=== PATIENT | male | born 1970 | race Two or more races ===

== ENCOUNTER 2020-06-28 10:08 | Emergency (ER) | payer SELFPAY ==
[~2020-06-28] VITALS: Ht 172.7 cm; Wt 74.8 kg
[2020-06-28] MEDS ORDERED: MORPHINE SULFATE 4 MG/ML SYR/VIAL IV ONE (10:45)
[2020-06-28] MEDS ORDERED: ONDANSETRON HCL 4 MG/2 ML VIAL IV ONE (10:45)
[2020-06-28] MEDS ORDERED: SODIUM CHLORIDE 0.9% 1,000 ML IVB ONE (10:45)
[2020-06-28 11:22] LABS: Basophils # (auto) 0 10 ^3/uL (0-0.2); Basophils % (auto) 0.7 % (0.0-2.0); Eosinophils # (auto) 0.2 10 ^3/uL (0-0.8); Eosinophils % (auto) 3.2 % (0.0-7.0); Hematocrit 40.9 % (41.0-53.0); Hemoglobin 13.9 g/dL (13.5-17.5); Lymphocytes # (auto) 2.4 10 ^3/uL (0.4-5.4); Lymphocytes % (auto) 34.2 % (10.0-50.0); Mean Corpuscular Hemoglobin 28.2 pg (28.0-32.0); Mean Corpuscular Volume 82.8 fL (80.0-100.0); Monocytes # (auto) 0.5 10 ^3/uL (0-1.3); Monocytes % (auto) 7.7 % (0.0-12.0); Neutrophils # (auto) 3.8 10 ^3/uL (1.6-8.6); Neutrophils % (auto) 54.2 % (37.0-80.0); Nucleated Red Blood Cells % 0.2 %; Red Blood Cells 4.94 10^6/uL (4.5-5.90); Red Cell Distribution Width 14.9 % (11.8-14.3)
[2020-06-28 11:32] LABS: Albumin 3.5 g/dL (3.4-5.0); Calcium 8.8 mg/dL (8.5-10.1); Potassium 4.4 mmol/L (3.5-5.1)
[2020-06-28 11:37] LABS: BUN/Creatinine Ratio 18.7; Bilirubin, Total 0.4 mg/dL (0.2-1.0); Total Protein 7.6 g/dL (6.4-8.2)
[2020-06-28 12:05] LABS: INR 1.03 (0.9-1.15)
[2020-06-28] MEDS ORDERED: IOHEXOL 300 MG/ML 100ML BOTTLE IJ ONE (12:42)
[2020-06-28 12:45] VITALS: BP 124/76
== END 2020-06-28 13:44 | disposition home or self-care (01) ==
LOC: ER 10:08
DX: R10.32 Left lower quadrant pain (principal)
CPT/HCPCS: 36415; 74177; 80053; 83690; 85025; 85610; 85730; 86850; 86900; 86901; 96361; 96374; 96375; 99285; J2270; J2405; Q9967

== ENCOUNTER 2020-11-22 11:00 | Emergency (ER) | payer SELFPAY ==
[~2020-11-22] VITALS: Ht 177.8 cm; Wt 81.6 kg
[2020-11-22 12:18] VITALS: BP 138/74
== END 2020-11-22 12:57 | disposition home or self-care (01) ==
LOC: ER 11:00 → EDBD 11:00 → ER 12:33
DX: T40.601A Poisoning by unspecified narcotics, accidental (unintentional), initial encounter (principal); F17.210 Nicotine dependence, cigarettes, uncomplicated; F12.10 Cannabis abuse, uncomplicated; Y92.89 Other specified places as the place of occurrence of the external cause

== ENCOUNTER 2021-01-16 11:15 | Emergency (ER) | payer SELFPAY ==
[~2021-01-16] VITALS: Ht 170.2 cm; Wt 74.8 kg
[2021-01-16 11:18] VITALS: BP 122/71
[2021-01-16] MEDS ORDERED: cefTRIAXone SOD 1,000 MG VL IM ONE (13:30)
[2021-01-16] MEDS ORDERED: LIDOCAINE 1% HCL (LOCAL ANESTH.) INJ 20ML MDV IJ ONE (13:30)
== END 2021-01-16 13:37 | disposition left against medical advice (07) ==
LOC: ER 11:15
DX: L02.31 Cutaneous abscess of buttock (principal); F17.210 Nicotine dependence, cigarettes, uncomplicated; F12.10 Cannabis abuse, uncomplicated; Z53.29 Procedure and treatment not carried out because of patient's decision for other reasons
CPT/HCPCS: 96372; 99283; J0696; J2001

== ENCOUNTER 2021-01-28 14:03 | Emergency (ER) | payer SELFPAY ==
[~2021-01-28] VITALS: Ht 170.2 cm; Wt 74.8 kg
[2021-01-28 14:13] VITALS: BP 143/94
[2021-01-28] MEDS ORDERED: SODIUM CHLORIDE 0.9% 1,000 ML IV ONE (15:30)
[2021-01-28] MEDS ORDERED: PIPERACILLIN-TAZO 4.5GM 100 ML IV ONE (15:30)
[2021-01-28] MEDS ORDERED: ONDANSETRON HCL 4 MG/2 ML VIAL IV ONE (15:30)
[2021-01-28] MEDS ORDERED: VANCOMYCIN PER PHARMACY 0 MG IV SCH (15:45)
[2021-01-28] MEDS ORDERED: MORPHINE SULFATE 10 MG/ML INJ 1ML SDV IV ONE (15:45)
[2021-01-28 16:11] LABS: Basophils # (auto) 0 10 ^3/uL (0-0.2); Hemoglobin 11.3 g/dL (13.5-17.5); Monocytes # (auto) 0.5 10 ^3/uL (0-1.3)
[2021-01-28 16:13] LABS: Basophils % (auto) 0.5 % (0.0-2.0); Eosinophils # (auto) 0.3 10 ^3/uL (0-0.8); Eosinophils % (auto) 2.7 % (0.0-7.0); Hematocrit 34.4 % (41.0-53.0); Mean Corpuscular Hemoglobin 27.4 pg (28.0-32.0); Mean Corpuscular Hgb Conc. 32.9 g/dL (32.0-36.0); Mean Corpuscular Volume 83.1 fL (80.0-100.0); Monocytes % (auto) 4.3 % (0.0-12.0); Neutrophils # (auto) 6.8 10 ^3/uL (1.6-8.6); Neutrophils % (auto) 64.5 % (37.0-80.0); Red Blood Cells 4.14 10^6/uL (4.5-5.90); Red Cell Distribution Width 15.8 % (11.8-14.3); White Blood Cell 10.6 10^3/uL (4.4-10.8)
[2021-01-28 16:44] LABS: BUN/Creatinine Ratio 23.9; Calcium 9.3 mg/dL (8.5-10.1); Potassium 3.7 mmol/L (3.5-5.1)
[2021-01-28] MEDS ORDERED: VANCOMYCIN 1,500 MG in D5W 5% 250 ML IV ONE (17:00)
[2021-01-28] MEDS ORDERED: VANCOMYCIN 1,500 MG in D5W 5% 250 ML IV SCH (22:00)
[2021-01-29] MEDS ORDERED: VANCOMYCIN 1GM/250ML 250 ML IV SCH (03:00)
== END 2021-01-28 22:31 | disposition left against medical advice (07) ==
LOC: ER 14:03
DX: L02.31 Cutaneous abscess of buttock (principal); F17.210 Nicotine dependence, cigarettes, uncomplicated; F12.10 Cannabis abuse, uncomplicated; Z53.29 Procedure and treatment not carried out because of patient's decision for other reasons
CPT/HCPCS: 36415; 73502; 80048; 83605; 85025; 85652; 87040; 99284; J2270; J3370; J7060

== ENCOUNTER 2021-01-30 08:33 | Emergency (ER) | payer MEDICAID, OTHER ==
[~2021-01-30] VITALS: Ht 170.2 cm; Wt 74.8 kg
[2021-01-30 09:23] VITALS: BP 134/82
[2021-01-30] MEDS ORDERED: LIDOCAINE 2%HCL (LOCAL ANESTH.) INJ 10ml MDV IJ ONE (09:30)
[2021-01-30] MEDS ORDERED: cefTRIAXone SOD 1,000 MG VL IM ONE (09:45)
== END 2021-01-30 09:59 | disposition home or self-care (01) ==
LOC: ER 08:33
DX: L02.31 Cutaneous abscess of buttock (principal)
CPT/HCPCS: 96372; 99283; J0696; J2001